=== PATIENT | female | born 1995 | race African-American/Black ===

== ENCOUNTER 2025-03-04 20:34 | Inpatient (IN) | payer BC ==
[~2025-03-04] VITALS: Ht 147.3 cm; Wt 68.0 kg
[2025-03-04 21:10] VITALS: O2SAT 97
[2025-03-04 21:21] LABS: BASOPHILS % 0.9 % (0.0-2.0); EOSINOPHILS % 2.3 % (0.0-5.0); HEMATOCRIT. 40.9 % (36.0-48.0); HEMOGLOBIN. 13.8 g/dL (12.0-16.0); LYMPHOCYTES % 30.8 % (20.0-50.0); MEAN PLATELET VOLUME 8.1 fl (7.4-10.4); MONOCYTES % 7.1 % (2.0-8.0); NEUTROPHILS % 58.9 % (40.0-76.0); PLATELET 320 x1000/uL (130-400); RED BLOOD CELL COUNT 5.12 mill/uL (4.2-5.4); RED CELL DISTRIBUTION WIDTH 13.2 % (11.6-14.6)
[2025-03-04 21:37] LABS: CREATININE 0.6 mg/dL (0.6-1.0); UREA NITROGEN BLOOD 9 mg/dL (9-23)
[2025-03-04 21:39] LABS: TROPONIN I HIGH SENSITIVITY < 4 ng/L (3.0-34)
[2025-03-04 22:12] LABS: ASPARTATE AMINOTRANSFERASE 88 IU/L (<34); BILIRUBIN DIRECT < 0.1 mg/dL (<=3.0); BILIRUBIN TOTAL 0.3 mg/dL (0.1-1.0); PROTEIN TOTAL 7.8 g/dL (6.0-8.3)
[2025-03-05] MEDS ORDERED: MORPHINE SULFATE 4 MG/ML INJ (FOR IV/IM USE) IV ONE (02:00)
[2025-03-05] MEDS ORDERED: ONDANSETRON HCL 4MG/2ML INJ IV ONE (02:00)
[2025-03-05] MEDS: MORPHINE SULFATE 4 MG/ML INJ (FOR IV/IM USE) IV NR (04:36)
[2025-03-05] MEDS: SODIUM CHLORIDE 0.9% 1,000 ML IV ONE (04:37)
[2025-03-05] MEDS: ONDANSETRON HCL 4MG/2ML INJ IV NR (04:37)
[2025-03-05] MEDS ORDERED: ONDA-241 MT (05:29)
[2025-03-05] MEDS: MORPHINE SULFATE 4 MG/ML INJ (FOR IV/IM USE) IV ONE (06:07)
[2025-03-05] MEDS: ONDANSETRON HCL 4MG/2ML INJ IV ONE (06:07)
[2025-03-05] MEDS ORDERED: NA PHOS,M-B/NA PHOS,DI-BA ENEMA 118ML PR PRN (07:45)
[2025-03-05] MEDS ORDERED: MAGNESIUM/ALUMINUM HYDROXIDE/SIMETHICONE 30ML UDC PO PRN (07:45)
[2025-03-05] MEDS ORDERED: DOCUSATE SODIUM 100MG CAPSULE PO PRN (07:45)
[2025-03-05] MEDS ORDERED: IPRATROPIUM/ALBUTEROL 0.5-3(2.5)MG/3ML NEB HHN PRN (07:45)
[2025-03-05] MEDS ORDERED: GUAIFENESIN 200MG/10ML SUGAR FREE UDC PO PRN (07:45)
[2025-03-05] MEDS ORDERED: ACETAMINOPHEN 325MG TABLET PO PRN (07:45)
[2025-03-05] MEDS ORDERED: ONDANSETRON HCL 4MG/2ML INJ IV PRN (07:45)
[2025-03-05] MEDS ORDERED: CLONIDINE 0.1MG TABLET PO PRN (07:45)
[2025-03-05 08:00] VITALS: BP 135/91; PULSE 70; RESP 17; RESP 20; TEMP 36.2; TEMP 36.2512; O2SAT 99
[2025-03-05] MEDS ORDERED: PANTOPRAZOLE SODIUM 40 MG/VIAL IV SCH (11:15)
[2025-03-05] MEDS: MVI, ADULT NO.1 10 ML, FOLIC ACID 1 MG, THIAMINE HCL 100 MG in SODIUM CHLORIDE 0.9% 1,0... IV SCH (11:22)
[2025-03-05 12:00] VITALS: BP 150/83; PULSE 66; RESP 17; TEMP 36.3; O2SAT 98
[2025-03-05] MEDS ORDERED: FOLIC ACID 1 MG, THIAMINE HCL 100 MG, MVI, ADULT NO.1 10 ML in DEXTROSE 5% WATER 1,000 ML IV ONE ×2 (12:30→12:45)
[2025-03-05] MEDS: LOSARTAN 25 MG TABLET PO SCH (12:53)
[2025-03-05] MEDS: SODIUM CHLORIDE 0.9% 1,000 ML IV SCH (12:56)
[2025-03-05] MEDS ORDERED: BISMUTH SUBSALICYLATE 262 MG/15 ML-120ML BOTTLE PO SCH (13:00)
[2025-03-05] MEDS ORDERED: METRONIDAZOLE 500MG TABLET PO SCH (13:00)
[2025-03-05] MEDS ORDERED: TETRACYCLINE HCL 250MG CAPSULE PO SCH (13:00)
[2025-03-05] MEDS: PANTOPRAZOLE SODIUM 40 MG/VIAL IV SCH (14:15)
[2025-03-05 15:23] LABS: BASOPHILS % 0.4 % (0.0-2.0); EOSINOPHILS % 3.1 % (0.0-5.0); HEMATOCRIT. 37.8 % (36.0-48.0); HEMOGLOBIN. 12.7 g/dL (12.0-16.0); LYMPHOCYTES % 29.9 % (20.0-50.0); MEAN PLATELET VOLUME 8.0 fl (7.4-10.4); MONOCYTES % 7.4 % (2.0-8.0); NEUTROPHILS % 59.2 % (40.0-76.0); PLATELET 281 x1000/uL (130-400); RED BLOOD CELL COUNT 4.70 mill/uL (4.2-5.4); RED CELL DISTRIBUTION WIDTH 13.2 % (11.6-14.6)
[2025-03-05 15:39] LABS: CREATININE 0.5 mg/dL (0.6-1.0); HCG SCREEN NEGATIVE; UREA NITROGEN BLOOD 6 mg/dL (9-23)
[2025-03-05 15:40] LABS: TROPONIN I HIGH SENSITIVITY < 4 ng/L (3.0-34)
[2025-03-05 16:00] VITALS: BP 110/78; PULSE 81; RESP 18; TEMP 36.6; O2SAT 96
[2025-03-05] MEDS ORDERED: NALOXONE HCL 0.4MG/ML VIAL IV PRN (16:15)
[2025-03-05] MEDS: POTASSIUM CHLORIDE 20MEQ/PACKET PO NR (17:08)
[2025-03-05] MEDS: SUCRALFATE 1G TABLET PO SCH (17:08)
[2025-03-05 20:00] VITALS: BP 128/78; PULSE 80; RESP 20; TEMP 36; O2SAT 98
[2025-03-05] MEDS: HYDROCODONE/ACETAMINOPHEN 5/325MG TABLET PO PRN (21:11)
[2025-03-06] VITALS: BP 111/73; PULSE 72; RESP 20; TEMP 35.9; O2SAT 94
[2025-03-06 00:34] LABS: TROPONIN I HIGH SENSITIVITY < 4 ng/L (3.0-34)
[2025-03-06 04:00] VITALS: BP 96/70; PULSE 70; RESP 20; TEMP 35.9; O2SAT 100
[2025-03-06 08:00] VITALS: BP 133/99; PULSE 99; RESP 19; TEMP 36.2; O2SAT 97
[2025-03-06] MEDS: ACETAMINOPHEN 325MG TABLET PO PRN (09:35)
[2025-03-06 12:00] VITALS: BP 119/81; PULSE 87; RESP 18; TEMP 36.7; O2SAT 96
[2025-03-06] MEDS ORDERED: PROT40 PO (12:56)
[2025-03-06 15:15] VITALS: BP 119/81; PULSE 87; RESP 18; TEMP 98
== END 2025-03-06 16:33 | disposition home or self-care (01) | DRG 383 ==
LOC: ER 20:34 → 7EST 03-05 06:02 → EDBEDREQ 03-05 06:09 → EDBEDREQTM 03-05 06:09 → ENRESERV 03-05 06:27
PROVIDERS: ADMIT Internal Medicine; ATTEND Internal Medicine
DX: K27.9 Peptic ulcer, site unspecified, unspecified as acute or chronic, without hemorrhage or perforation (principal); K85.90 Acute pancreatitis without necrosis or infection, unspecified; K90.9 Intestinal malabsorption, unspecified; K29.70 Gastritis, unspecified, without bleeding; K21.9 Gastro-esophageal reflux disease without esophagitis; K81.9 Cholecystitis, unspecified; E11.9 Type 2 diabetes mellitus without complications; I10 Essential (primary) hypertension; E78.00 Pure hypercholesterolemia, unspecified; F31.9 Bipolar disorder, unspecified; E66.9 Obesity, unspecified; K76.0 Fatty (change of) liver, not elsewhere classified; G89.29 Other chronic pain; K52.9 Noninfective gastroenteritis and colitis, unspecified; K82.8 Other specified diseases of gallbladder; Z68.31 Body mass index [BMI] 31.0-31.9, adult
CPT/HCPCS: 36415; 71045; 74176; 76705; 80048; 80076; 82550; 83036; 84484; 84703; 85025; 93005; 96361; 96374; 96375; 99285; J2270; J2405; J2470; J3411; J3490; J7030; J7070